=== PATIENT | female | born 1985 | race Two or more races ===

== ENCOUNTER 2018-01-28 16:05 | Emergency (ER) | payer MEDICAID, OTHER ==
--- NOTE | 2018-01-28 16:47 | EDPHY ---
HPI/HX/ROS/PE/MDM Narrative: CHIEF COMPLAINT: Abdominal pain HPI: The patient is a 32 y/o female arriving with her family member complaining of constant mid-abdominal pain that began several hours ago after eating breakfast this morning. Her pain has become progressively more severe throughout the day and is non-radiating. She describes her pain as crampy in nature and associated with nausea and non-bloody diarrhea. She has not eaten anything since the pain began. She denies associated vomiting, fever, urinary complaints. She did not eat any unusual foods prior to onset and felt normal upon waking this morning. She took a dose of Xanax prior to arrival here with no change in her symptoms. She has never had this pain before. She is currently menstruating. She is normal healthy and only prior abdominal surgeries were c- sections. REVIEW OF SYSTEMS: Aside from elements discussed in the HPI, a comprehensive 10-point review of systems was reviewed and is negative. PMH: C-sections SOCIAL HISTORY: Family member at bedside. . Lives in [place]. PHYSICAL EXAM: General:Patient is alert, in no acute distress. ENT:Eyes are normal to inspection. ENT inspection normal. Neck: Normal inspection. Full range of motion. Respiratory:No respiratory distress. Breath sounds normal bilaterally. Cardiovascular: Regular rate and rhythm. Strong peripheral pulses. Normal cap refill. Abdomen: Moderate epigastric tenderness to palpation. There are no peritoneal signs. Back: Normal to inspection. No tenderness to palpation. Skin: Normal color. No rash. Warm and dry. Extremities: Normal appearance. Full range of motion. Neuro: Oriented x3. Normal motor function. Normal sensory function. ED Course: This is a normally healthy 32 y/o female who presents with several hours of epigastric abdominal pain and non-bloody diarrhea that began after eating breakfast this morning. She appears uncomfortable and has moderate epigastric tenderness on palpation. She is hemodynamically stable. Plan for IV, labs, UA, and symptom management. 30mg IV Toradol, 4mg IV Zofran, and 1L IV NS ordered. Labs unremarkable. UA shows blood; however, patient is on her menstrual period. Abdominal CT ordered. CT is negative. Reassessed patient and discussed findings. She is feeling improved after medications and IV fluids. Bentyl ordered prior to discharge. She will be discharged with standard abdominal pain care and follow up directions. Zofran for nausea. Strict return precautions given. - Data Points Imaging Results: Imaging Impressions Abdomen CT 01/28/18 18:06 Impression: 1. Normal CT abdomen and pelvis with contrast enhancement. 2. No CT evidence of appendicitis, abscess or bowel obstruction. Findings discussed with Hayden Vieira MD at 18:41 hour, 01/28/2018. Imaging: Discussed imaging studies w/ yard caller Radiologist, I viewed and interpreted images myself Laboratory Results: Laboratory Results 01/28/18 17:27 01/28/18 17:27 01/28/18 01/28/18 01/28/18 17:27 17:27 16:20 WBC 8.04 10^3/uL 10^3/uL (3.80-9.50) RBC 4.76 10^6/uL 10^6/uL (4.18-5.33) Hgb 14.7 g/dL g/dL (12.6-16.3) Hct 42.0 % % (38.0-47.0) MCV 88.2 fL fL (81.5-99.8) MCH 30.9 pg pg (27.9-34.1) MCHC 35.0 g/dL g/dL (32.4-36.7) RDW 13.3 % % (11.5-15.2) Plt Count 208 10^3/uL 10^3/uL (150-400) MPV 10.4 fL fL (8.7-11.7) Neut % (Auto) 66.9 % % (39.3-74.2) Lymph % (Auto) 25.4 % % (15.0-45.0) Crosby % (Auto) 5.1 % % (4.5-13.0) Eos % (Auto) 1.5 % % (0.6-7.6) Baso % (Auto) 0.6 % % (0.3-1.7) Nucleat RBC Rel Count 0.0 % % (0.0-0.2) Absolute Neuts (auto) 5.38 10^3/uL 10^3/uL (1.70-6.50) Absolute Lymphs (auto) 2.04 10^3/uL 10^3/uL (1.00-3.00) Absolute Monos (auto) 0.41 10^3/uL 10^3/uL (0.30-0.80) Absolute Eos (auto) 0.12 10^3/uL 10^3/uL (0.03-0.40) Absolute Basos (auto) 0.05 10^3/uL 10^3/uL (0.02-0.10) Absolute Nucleated RBC 0.00 10^3/uL 10^3/uL (0-0.01) Immature Gran % 0.5 % % (0.0-1.1) Immature Gran # 0.04 10^3/uL 10^3/uL (0.00-0.10) Sodium 138 mEq/L mEq/L (135-145) Potassium 3.8 mEq/L mEq/L (3.5-5.2) Chloride 103 mEq/L mEq/L (97-110) Carbon Dioxide 23 mEq/l mEq/l (22-31) Anion Gap 12 mEq/L mEq/L (8-16) BUN 14 mg/dL mg/dL (7-23) Creatinine 0.6 mg/dL mg/dL (0.6-1.0) Estimated GFR > 60 Glucose 85 mg/dL mg/dL (70-100) Calcium 9.3 mg/dL mg/dL (8.5-10.4) Total Bilirubin 0.3 mg/dL mg/dL (0.1-1.4) Conjugated Bilirubin 0.2 mg/dL mg/dL (0.0-0.5) Unconjugated Bilirubin 0.1 mg/dL mg/dL (0.0-1.1) AST 18 IU/L IU/L (14-46) ALT 32 IU/L IU/L (9-52) Alkaline Phosphatase 69 IU/L IU/L (38-126) Total Protein 7.0 g/dL g/dL (6.3-8.2) Albumin 4.1 g/dL g/dL (3.5-5.0) Lipase 215 IU/L IU/L (23-300) Urine Color Urine Appearance Urine pH Ur Specific Falcon Urine Protein Urine Ketones Urine Blood Urine Nitrate Urine Bilirubin Urine Urobilinogen Ur Leukocyte Esterase Urine RBC Urine WBC Ur Epithelial Cells Urine Bacteria Urine Mucus Urine Glucose Urine Test NEGATIVE 01/28/18 16:20 WBC RBC Hgb Hct MCV MCH MCHC RDW Plt Count MPV Neut % (Auto) Lymph % (Auto) Crosby % (Auto) Eos % (Auto) Baso % (Auto) Nucleat RBC Rel Count Absolute Neuts (auto) Absolute Lymphs (auto) Absolute Monos (auto) Absolute Eos (auto) Absolute Basos (auto) Absolute Nucleated RBC Immature Gran % Immature Gran # Sodium Potassium Chloride Carbon Dioxide Anion Gap BUN Creatinine Estimated GFR Glucose Calcium Total Bilirubin Conjugated Bilirubin Unconjugated Bilirubin AST ALT Alkaline Phosphatase Total Protein Albumin Lipase Urine Color YELLOW Urine Appearance CLEAR Urine pH 6.0 (5.0-7.5) Ur Specific Falcon 1.017 (1.002-1.030) Urine Protein NEGATIVE (NEGATIVE) Urine Ketones NEGATIVE (NEGATIVE) Urine Blood 1+ H (NEGATIVE) Urine Nitrate NEGATIVE (NEGATIVE) Urine Bilirubin NEGATIVE (NEGATIVE) Urine Urobilinogen NEGATIVE EU EU (0.2-1.0) Ur Leukocyte Esterase NEGATIVE (NEGATIVE) Urine RBC 3-5 /hpf H /hpf (0-3) Urine WBC 1-3 /hpf /hpf (0-3) Ur Epithelial Cells TRACE /lpf /lpf (NONE-1+) Urine Bacteria TRACE /hpf H /hpf (NONE SEEN) Urine Mucus TRACE /lpf /lpf (NONE-1+) Urine Glucose NEGATIVE (NEGATIVE) Urine Test Medications Given: Discontinued Medications Sodium Chloride (Ns) 1,000 mls @ 0 mls/hr IV EDNOW ONE; Wide Open PRN Reason: Protocol Stop: 01/28/18 17:08 Last Admin: 01/28/18 17:26 Dose: 1,000 mls Ketorolac Tromethamine (Toradol) 30 mg IVP EDNOW ONE Stop: 01/28/18 17:08 Last Admin: 01/28/18 17:22 Dose: 30 mg Ondansetron HCl (Zofran) 4 mg IVP EDNOW ONE Stop: 01/28/18 17:08 Last Admin: 01/28/18 17:21 Dose: 4 mg General Time Seen by Provider: 01/28/18 16:40 Initial Vital Signs: Initial Vital Signs Temperature (C) 36.7 C 01/28/18 16:10 Heart Rate 81 01/28/18 16:10 Respiratory Rate 16 01/28/18 16:10 Blood Pressure 134/91 H 01/28/18 16:10 O2 Sat (%) 98 01/28/18 16:10 O2 Delivery Mode Room Air Allergies/Adverse Reactions: No Known Allergies Allergy (Unverified 01/28/18 16:08) Home Medications: Medication Instructions Recorded Effexor Xr 01/28/18 Xanax 01/28/18 Departure - Departure Disposition: Home, Routine, Self-Care Clinical Impression: Abdominal pain Qualifiers: Abdominal location: epigastric Qualified Code(s): R10.13 - Epigastric pain Condition: Good Instructions: Acute Abdominal Pain (ED) Additional Instructions: Take Zofran as prescribed for nausea and vomiting. Sometimes we are unable to diagnose an obvious cause of abdominal pain in the Emergency Department. Because more serious conditions can be difficult to diagnose early in the course of their presentation, we ask that you return to the Emergency Department in 8-12 hours for a recheck if you are still having pain. This is necessary to exclude the development of a more serious condition such as appendicitis or other intra-abdominal emergency. In the event your pain markedly increases before that time or you develop intractable vomiting or fever return to the Emergency Department immediately. Referrals: Crissy Sawant DO [Doctor of Osteopathy] - As per Instructions Report Scribed for: Hayden Vieira Report Scribed by: Hue Barraza Date of Report: 01/28/18 Time of Report: 16:45 Physician Review and Approval Statement: Portions of this note were transcribed by an ED scribe. I personally performed the history, physical exam, and medical decision making; and confirm the accuracy of the information in the transcribed note.
[2018-01-28] MEDS ORDERED: ONDANSETRON 4 MG/2 ML VIAL IVP ONE (17:07)
[2018-01-28] MEDS ORDERED: KETOROLAC 30 MG/1 ML SDV IVP ONE (17:07)
[2018-01-28] MEDS ORDERED: NS 1,000 ML IV ONE (17:07)
[2018-01-28 17:48] LABS: PLATELET COUNT 208 10^3/uL (150-400)
[2018-01-28] MEDS ORDERED: IOPAMIDOL (ISOVUE-300) 100 ML BTL ONE (18:11)
[2018-01-28] MEDS ORDERED: DICYCLOMINE 10 MG CAP PO ONE (18:49)
[2018-01-28] MEDS ORDERED: ONDANSETRON 4MG PREPACK#2 BTL TAKEHOME ONE (18:54)
[2018-01-28 19:05] VITALS: TEMP 98.4
[2018-01-28 19:06] VITALS: RESP 18; O2SAT 97
[2018-01-28] MEDS ORDERED: DICYCLOMINE 10 MG CAP ONE (19:26)
[2018-01-28 19:52] VITALS: BP 110/85; PULSE 87
== END 2018-01-28 19:51 | disposition home or self-care (01) ==
DX: R10.13 Epigastric pain (principal); E86.9 Volume depletion, unspecified
CPT/HCPCS: 96374; J1885; J2405; Q9967